=== PATIENT | male | born 1975 | race Hispanic/Latino ===

== ENCOUNTER 2017-08-31 10:56 | Emergency (ER) | payer OTHER, SELFPAY ==
[2017-08-31 10:57] VITALS: BP 161/103; PULSE 91; RESP 16; TEMP 36.8; O2SAT 99; BMI 26.4
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
[2017-08-31 12:20] VITALS: BP 123/77; PULSE 62; RESP 15; O2SAT 98
== END 2017-08-31 12:21 | disposition home or self-care (01) ==
PROVIDERS: Emergency Provider Emergency Medicine
DX: T20.00XA Burn of unspecified degree of head, face, and neck, unspecified site, initial encounter (principal); W40.8XXA Explosion of other specified explosive materials, initial encounter; Y93.89 Activity, other specified; Y92.89 Other specified places as the place of occurrence of the external cause; Y99.0 Civilian activity done for income or pay
CPT/HCPCS: 99282